=== PATIENT | male | born 1950 ===

== ENCOUNTER 2018-03-03 08:17 | Outpatient (CLI) | payer OTHER ==
[~2018-03-03] VITALS: Ht 152.4 cm; Wt 77.1 kg
== END 2018-03-03 08:30 | disposition home or self-care (01) ==
LOC: OFIC 805 08:17
DX: H90.3 Sensorineural hearing loss, bilateral (principal); J31.0 Chronic rhinitis

== ENCOUNTER 2018-04-07 07:26 | Outpatient (CLI) | payer OTHER ==
[~2018-04-07] VITALS: Ht 152.4 cm; Wt 77.1 kg
== END 2018-04-07 07:50 | disposition home or self-care (01) ==
LOC: OFIC 805 07:26
DX: H90.3 Sensorineural hearing loss, bilateral (principal); J31.0 Chronic rhinitis

== ENCOUNTER 2018-05-05 07:29 | Outpatient (CLI) | payer OTHER ==
[~2018-05-05] VITALS: Ht 152.4 cm; Wt 77.1 kg
== END 2018-05-05 07:45 | disposition home or self-care (01) ==
LOC: OFIC 805 07:29
DX: H90.3 Sensorineural hearing loss, bilateral (principal)

== ENCOUNTER → 2018-11-24 | Outpatient (CLI) | payer OTHER ==
[~2018-11-24] VITALS: Ht 152.4 cm; Wt 77.1 kg
== END | disposition home or self-care (01) ==
LOC: OFIC 805 07:01
DX: H90.3 Sensorineural hearing loss, bilateral (principal); J31.0 Chronic rhinitis; J32.8 Other chronic sinusitis

== ENCOUNTER 2019-03-13 08:47 | Outpatient (CLI) | payer OTHER ==
[~2019-03-13] VITALS: Ht 152.4 cm; Wt 79.4 kg
== END 2019-03-13 14:54 | disposition home or self-care (01) ==
LOC: OFIC 805 08:47
DX: H90.3 Sensorineural hearing loss, bilateral (principal); H61.21 Impacted cerumen, right ear; H60.8X1 Other otitis externa, right ear